=== PATIENT | male | born 1985 | race Caucasian/White ===

== ENCOUNTER 2021-08-28 13:41 | Emergency (ER) | payer SELFPAY ==
--- NOTE | ~2021-08-28 | CT_ITS ---
EXAMINATION: CT chest abdomen pelvis w con DATE: 08/28/2021 15:29 INDICATION: 12 foot fall. Right rib pain. TECHNIQUE: Computed tomography (CT) of the chest, abdomen, and pelvis was performed with 100 mL Omnip aque-300 intravenous contrast. Automated exposure control and iterative reconstruction technique were employed. The dose-length product was 591.45 mGy-cm. COMPARISON: Rib and shoulder x-rays, same date. FINDINGS: CHEST: No thoracic aortic injury. No mediastinal hematoma. No pericardial effusion. No acute lung injury. No pleural effusion or pneumothorax. ABDOMEN/PELVIS: No solid organ injury. No evidence of bowel or mesenteric injury. No free fluid or free air. No retroperitoneal hematoma. Pelvic contents are atraumatic. MUSCULOSKELETAL: No acute fracture. No fracture or traumatic malalignment of the thoracic or lumbar spine. IMPRESSION: No acute process detected in the chest, abdomen, or pelvis. Reviewed, dictated and finalized at location K.
--- NOTE | ~2021-08-28 | XR_ITS ---
EXAMINATION: XR shoulder RT min 2V, XR ribs RT 2V DATE: 08/28/2021 14:23 INDICATION: Right rib and shoulder pain post fall from tree TECHNIQUE: Line 1. AP internally and externally rotated, AP oblique externally rotated and transscapular Y views of t he right shoulder were obtained. 2. 3 views of the right ribs were obtained. COMPARISON: None FINDINGS: Right shoulder: Bone alignment is normal. No fracture. Glenohumeral joint is normal. Acromioclavicular joint is norm al. Soft tissues are unremarkable. Right ribs: Bone alignment is normal. No fracture. Right lung is no airspace opacities, pulmonary edema, pleural effusion or pneumothorax. The right side of the cardiomediastinal silhouette is normal.. IMPRESSION: Negative right rib and shoulder radiographs. Reviewed, dictated and finalized at location A. IMPRESSION: Negative right rib and shoulder radiographs.
[2021-08-28 13:47] VITALS: BP 131/84; PULSE 99; RESP 18; TEMP 36.6; O2SAT 98
--- NOTE | 2021-08-28 13:55 | ED.FALL ---
HPI - Fall General Chief Complaint: Fall Stated Complaint: FELL OUT OF TREE Time Seen by Provider: 08/28/21 13:55 History of Present Illness HPI Narrative: 35-year-old male patient presents to ER with complaints of pain to the back of his her right scapula and ribs as well as his right shoulder after a fall from 12 ft high tree. Patient states that he was cutting the tree and felt a little dizzy and the next thing he found himself was on the ground. He denies any loss of consciousness or hitting his head. He denies any neck pain. He denies any trouble with his vision. The injury was sustained around 11:00 a.m. this morning. The patient did have his girlfriend drive him away from the scene. He denies any difficulty breathing. He denies any difficulty with the nausea or vomiting. He denies any pain in the back of the neck. He denies any numbness or tingling to the arms or fingers. Patient states that he is generally in good health. His COVID vaccinated. No known exposure to COVID. Related Data Allergies Allergy/AdvReac Type Severity Reaction Status Date / Time No Known Allergies Allergy Verified 08/28/21 13:56 Review of Systems Review of Systems: All systems reviewed & are unremarkable except as noted in HPI and below Constitutional: Constitutional: Denies chills, Denies fatigue and Denies weakness Eyes: Eyes: Reports no additional eye complaints ENT: Denies dysphagia, Denies vertigo, Reports dizziness and Denies nasal congestion Cardiovascular: Cardiovascular: Denies chest pain, Denies rapid heart rate, Denies radiating jaw, neck or arm pain and Denies slow heart rate Respiratory: Respiratory: Reports no additional respiratory complaints and Denies dyspnea Gastrointestinal: Gastrointestinal: Reports no additional gastrointestinal complaints Genitourinary: Genitourinary: Reports no additional male genitourinary complaints Musculoskeletal: Musculoskeletal: Reports no additional musculoskeletal complaints Integumentary/Breasts: Skin/Breast: Reports system reviewed and no additional complaints, except as docu Neurologic: Reports system reviewed and no additional complaints, except as documented Psychiatric: Psychiatric: Reports no additional psychiatric complaints Endocrine: Endocrine: Reports no additional endocrine complaints Hematologic/Lymphatic: Hematologic/Lymphatic: Reports no additional hematologic/lymphatic complaints Allergic/Immunologic: Allergic/Immunologic: Reports no additional allergic/immunologic complaints [facility] Surgical History Surgical History (Updated 08/28/21 @ 14:15 by Greta Parks MD) History of appendectomy Exam Const: General: healthy appearing, no acute distress and alert Nutritional Appearance: well nourished Orientation/consciousness: patient oriented x3 Limitations: no limitations HENMT: Head: normal to inspection, no contusions, no hematomas and no lacerations Ears: external ears normal and EAC's normal General nose exam: Normal external nose present, Normal nares present, no nasal discharge noted and no epistaxis Face and sinus: sinuses nontender Mouth: Yes Normal oral and palatal mucosa present and Yes lip normal Eyes: Pupils: Equal, round and reactive pupils present EOM: EOMs intact bilaterally Neck: Neck: normal visual inspection, no lymphadenopathy and no meningeal signs Other: no midline tenderness. No distracting injuries Chest: Chest palpation & inspection: normal inspection of the chest and tenderness Other: tenderness is elicited on the posterior right chest wall including the scapular area. Resp: Effort & Inspection: normal respiratory effort, not labored, no retractions, not tachypneic and no use of accessory muscles Auscultation: clear to auscultation bilaterally, no crackles, no rales, no rhonchi, no wheezes, breath sounds present and lung sounds not diminished Cardio: Rate: regular rate Rhythm: regular rhythm GI: GI Palp: Yes Soft to palpat
[2021-08-28 14:12] LABS: Appearance Urine Slightly Cloudy (Clear); Bilirubin Urine Negative (Negative); Color Urine Yellow (Yellow); Glucose Urine UA Negative (Negative); Ketones Urine Negative (Negative); Leukocyte Esterase Ur 1+ (Negative); Nitrate Urine Negative (Negative); Protein Urine Trace (Negative); Specific Grav Ur >= 1.030 (1.010-1.020)
[2021-08-28 14:18] LABS: Add Urine Microscopic? YES; Bacteria Urine 1+ /hpf; Blood Urine Trace-Intact (Negative); Mucus Urine Few /lpf; Squamous Epithelial Cell Urine Rare /hpf (Few); WBC Urine 21-30 /hpf (0-3)
[2021-08-28 14:34] VITALS: BP 129/90; O2SAT 98
[2021-08-28 14:35] LABS: Basophils Absolute Auto 0.03 K/mm3 (0.00-0.10); Basophils Percent Auto 0.4 % (0.0-1.0); Eosinophils Absolute Auto 0.12 K/mm3 (0.02-0.50); Eosinophils Percent Auto 1.4 % (1.0-6.0); Hematocrit 43.5 % (40.0-54.0); Hemoglobin 14.3 g/dL (14.0-18.0); Immature Granulocyte Absolute 0.02 K/mm3 (0.00-0.00); Immature Granulocyte Percent A 0.2 % (0.0-0.0); Lymphocytes Absolute Auto 1.94 K/mm3 (1.10-4.50); Lymphocytes Percent Auto 23.2 % (18.0-42.0); Mean Corpuscular HGB Conc 32.9 g/dL (32.0-36.0); Mean Corpuscular Hemoglobin 29.1 pg (27.0-31.0); Mean Corpuscular Volume 88.4 fL (78.0-102.0); Mean Platelet Volume 8.9 fl (8.7-11.0); Monocytes Absolute Auto 0.56 K/mm3 (0.10-0.90); Monocytes Percent Auto 6.7 % (2.0-11.0); Neutrophils Absolute Auto 5.7 K/mm3 (1.7-7.2); Neutrophils Percent Auto 68.1 % (50.0-70.0); Platelet Count Result 392 K/mm3 (150-420); Red Blood Count 4.92 M/mm3 (4.70-6.10); Red Cell Distribution Width 12.3 % (11.6-14.4); White Blood Count 8.4 K/mm3 (4.8-10.8)
[2021-08-28 14:50] LABS: Alanine Aminotransferase 18 U/L (16-63); Albumin Level 4.1 g/dL (3.4-5.0); Alkaline Phosphatase 125 U/L (46-116); Anion Gap 6 mmol/L (8-16); Aspartate Amino Transferase 18 U/L (15-37); Bilirubin,Total 0.4 mg/dL (0.00-1.00); Blood Urea Nitrogen 14 mg/dL (7-18); Calcium 8.8 mg/dL (8.5-10.1); Carbon Dioxide 30 mmol/L (21-32); Chloride 102 mmol/L (98-108); Estimated CRCL calculation 95 ml/min; Estimated Glomerular Filt Rate > 60; Glucose 97 mg/dL (70-99); Osmolality Calculated 286 mOsm/kg (285-295); Potassium 3.6 mmol/L (3.5-5.1); Sodium 138 mmol/L (136-145); Total Protein 7.7 g/dL (6.4-8.2)
[2021-08-28 16:00] VITALS: BP 129/88; PULSE 79; RESP 16; TEMP 36.6; O2SAT 98
== END 2021-08-28 16:00 | disposition home or self-care (01) ==
PROVIDERS: Emergency Provider Emergency Medicine
DX: S20.211A Contusion of right front wall of thorax, initial encounter (principal); S46.911A Strain of unspecified muscle, fascia and tendon at shoulder and upper arm level, right arm, initial encounter; N39.0 Urinary tract infection, site not specified; W14.XXXA Fall from tree, initial encounter
CPT/HCPCS: 36415; 71100; 71260; 73030; 74177; 80053; 81001; 85025; 99284; A4565; Q9967

== ENCOUNTER 2023-07-17 20:47 | Emergency (ER) | payer SELFPAY ==
[2023-07-17 20:50] VITALS: BP 145/90; PULSE 97; RESP 18; TEMP 36.9; O2SAT 97
--- NOTE | 2023-07-17 20:51 | ED.GENADULT ---
HPI - General Adult General Chief complaint: Unspecified Stated complaint: unspecified Time Seen by Provider: 07/17/23 20:51 Source: patient Mode of arrival: ambulatory Limitations: no limitations History of Present Illness HPI narrative: 37-year-old male, smoker tested positive for COVID 06/26/2023. His work requires a repeat COVID test to return to work. The patient is currently asymptomatic. Explained to the patient the test is likely to be positive again and that he is unlikely to transmit COVID to others. In any case the patient wants a COVID test as his bosses insisted that he cannot return to work without a COVID test. Related Data Home Medications Medication Instructions Recorded Confirmed lisdexamfetamine 10 mg capsule mg 07/17/23 (Vyvanse) Allergies Allergy/AdvReac Type Severity Reaction Status Date / Time No Known Allergies Allergy Verified 07/17/23 21:11 Review of Systems Review of Systems: All systems reviewed & are unremarkable except as noted in HPI and below Constitutional: Constitutional: Reports as per HPI and Reports no additional constitutional complaints Eyes: Eyes: Reports as per HPI and Reports no additional eye complaints ENT: Reports system reviewed and no additional complaints, except as documented and Reports as per HPI Cardiovascular: Cardiovascular: Reports as per HPI and Reports no additional cardiovascular complaints Respiratory: Respiratory: Reports as per HPI, Reports no additional respiratory complaints, Reports cough, Reports dyspnea and Reports wheezing Gastrointestinal: Gastrointestinal: Reports as per HPI Genitourinary: Genitourinary: Reports no additional male genitourinary complaints Musculoskeletal: Musculoskeletal: Reports no additional musculoskeletal complaints Integumentary/Breasts: Skin/Breast: Reports system reviewed and no additional complaints, except as docu and Reports as per HPI Neurologic: Reports system reviewed and no additional complaints, except as documented and Reports as per HPI Psychiatric: Psychiatric: Reports no additional psychiatric complaints and Reports as per HPI Endocrine: Endocrine: Reports no additional endocrine complaints and Reports as per HPI Hematologic/Lymphatic: Hematologic/Lymphatic: Reports no additional hematologic/lymphatic complaints and Reports as per HPI PMF Past Medical History Medical History (Updated 07/17/23 @ 21:44 by Colton Rogers MD) SARS-CoV-2 antibody negative Surgical History Surgical History (Updated 08/28/21 @ 14:15 by Greta Parks MD) History of appendectomy Social History Social History (Updated 07/17/23 @ 21:01 by Colton Rogers MD) Social History: smoker Exam Const: General: healthy appearing and no acute distress Orientation/consciousness: patient oriented x3 Limitations: no limitations HENMT: Head: normal to inspection Ears: external ears normal Face/Nose/Sinus: Normal external nose present Face and sinus: normal facial exam Mouth: Yes Normal oral and palatal mucosa present Throat: posterior oropharynx normal Eyes: Conjunctivae: conjunctivae normal Pupils: Equal, round and reactive pupils present EOM: EOMs intact bilaterally Direct Ophthalmoscopy: no photophobia Neck: Neck: normal visual inspection, no lymphadenopathy and no meningeal signs Chest: Chest palpation & inspection: normal inspection of the chest Resp: Effort & Inspection: normal respiratory effort Auscultation: clear to auscultation bilaterally Cardio: Rate: regular rate Rhythm: regular rhythm GI: GI Palp: Yes Soft to palpation Auscultation: normal bowel sounds : General: Yes no CVA tenderness Back/Spine/Pelvis: Back: no CVA tenderness Skin: General skin exam: normal color Rashes: no rashes Wounds: no wounds Neuro: General: patient oriented x3, moves all extremities, no meningeal signs, no focal motor deficits and CN's II-XI intact bilaterally Cranial nerves: Yes Nysta
[2023-07-17 21:33] LABS: Influenza A QL RT-PCR Negative (Negative); Influenza B QL RT-PCR Negative (Negative); RSV RNA, RT-PCR Negative (Negative); SARS-CoV-2 RNA PCR Negative (Negative)
--- NOTE | 2023-07-17 21:44 | PC.NURSE ---
Dr. Rogers at bedside for update and results.
--- NOTE | 2023-07-17 22:09 | ED.GENADULT ---
HPI - General Adult General Chief complaint: Unspecified Stated complaint: unspecified Time Seen by Provider: 07/17/23 20:51 Source: patient Mode of arrival: ambulatory Limitations: no limitations Related Data Home Medications Medication Instructions Recorded Confirmed lisdexamfetamine 10 mg capsule mg 07/17/23 (Vyvanse) Allergies Allergy/AdvReac Type Severity Reaction Status Date / Time No Known Allergies Allergy Verified 07/17/23 21:11 [facility] Past Medical History Medical History (Updated 07/17/23 @ 21:44 by Colton Rogers MD) SARS-CoV-2 antibody negative Surgical History Surgical History (Updated 08/28/21 @ 14:15 by Greta Parks MD) History of appendectomy Social History Social History (Updated 07/17/23 @ 21:01 by Colton Rogers MD) Social History: smoker Course Vital Signs Vital signs: Vital Signs Temperature 36.9 C 07/17/23 20:50 Pulse Rate 97 07/17/23 20:50 Respiratory Rate 18 07/17/23 20:50 Blood Pressure 145/90 H 07/17/23 20:50 Pulse Oximetry 97 07/17/23 20:50 Oxygen Delivery Room Air 07/17/23 20:50 Temperature 36.9 C 07/17/23 20:50 Pulse Rate 97 07/17/23 20:50 Respiratory Rate 18 07/17/23 20:50 Blood Pressure 145/90 H 07/17/23 20:50 Pulse Oximetry 97 07/17/23 20:50 Oxygen Delivery Room Air 07/17/23 21:20 Medical Decision Making Vital Signs Vital Signs: Vital Signs Temperature 36.9 C 07/17/23 20:50 Pulse Rate 97 07/17/23 20:50 Respiratory Rate 18 07/17/23 20:50 Blood Pressure 145/90 H 07/17/23 20:50 Pulse Oximetry 97 07/17/23 20:50 Oxygen Delivery Room Air 07/17/23 20:50 Temperature 36.9 C 07/17/23 20:50 Pulse Rate 97 07/17/23 20:50 Respiratory Rate 18 07/17/23 20:50 Blood Pressure 145/90 H 07/17/23 20:50 Pulse Oximetry 97 07/17/23 20:50 Oxygen Delivery Room Air 07/17/23 21:20 Lab Data Labs: Lab Results 07/17/23 Range/Units 20:53 Influenza A (RT-PCR) Negative (Negative) Influenza B (RT-PCR) Negative (Negative) RSV (RT-PCR) Negative (Negative) SARS-CoV-2 RNA (RT-PCR) Negative (Negative) Discharge Plan Discharge Clinical Impression: COVID-19 ruled out by laboratory testing Patient Disposition: Home, Self-Care Condition: Stable Instructions: Antibiotic Form, COVID-19 (Coronavirus Disease 2019) (ED) Patient Language: [place]ar[place] Prescriptions: No Action lisdexamfetamine [Vyvanse] 10 mg Capsule Follow-up/Referrals: UNKNOWN,DOCTOR [Non-Staff] - Stand Alone Forms: Work/School Release IP Time of Disposition: 21:43
== END 2023-07-17 21:55 | disposition home or self-care (01) ==
PROVIDERS: Emergency Provider Internal Medicine Critical Care Medicine; PCP Family Medicine
DX: Z11.52 Encounter for screening for COVID-19 (principal)
CPT/HCPCS: 87637; 99283